=== PATIENT | male | born 1985 | race African-American/Black ===

== ENCOUNTER 2019-07-22 20:22 | Emergency (ER) | payer MEDICAID, SELFPAY ==
[2019-07-22 19:58] VITALS: BP 113/47; PULSE 88; RESP 16; TEMP 37.2; O2SAT 97
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
--- NOTE | 2019-07-22 22:30 | NUR.NOTE ---
Mental health in to evjohn pt.
--- NOTE | 2019-07-22 23:12 | PDOC.MHCN_ITS ---
Date of service: 07/22/19 Time of Service: 23:12 Mental Health Crisis Note Presenting Issue How did you arrive at the ED and why did you come: Aurelia called 911 tonight because he was feeling overwhelmed and needed support. Precipitating Factors Aurelia denied SI and HI. He has no hx of either. He recently lost a very close friend of his due to medical condition she had and is struggling with coping with his grief. In addition he is 3 days new to the area and trying to figure out his needs to get settled in his home and switch all of his services over to [facility] from [facility] in [place]. Disposition BEHAVIOR: Aurelia is cooperative and very energetic. He speaks with a loud voice but I believe this is normal for him. He is engaged in the conversation and is seeking support and someone to listen. EYE CONTACT: Aurelia's eye contact is normal outside of what appears to be lazy eyes. MOOD: Aurelia appears sad at times and very overwhelmed with what he still has to do to get completely settled in his home. AFFECT: Aurelia's affect appears normal. APPETITE: Aurelia reported his appetite is improving. SLEEP(trouble falling/staying asleep: Aurelia reported that his sleep improved last night. Plan Discussed Aurelia utilizing his DBT skills to deal with stressful situations. I will make a referral to case management through [facility] and we will begin the process of getting Aurelia set up with the [facility] program. Provisional Diagnosis adjustment d.o. unspecified Signature Clinician's Name/Title: Zandra Brock MS Emergency Services Clinician
[2019-07-22 23:23] VITALS: BP 109/77; PULSE 70; RESP 16; O2SAT 99
--- NOTE | 2019-07-22 23:24 | NUR.NOTE ---
Cleared for DC home. Discharge instructions reviewed with verbal understanding. aware to f/u with [facility] as instructed. Ambulated to exit with steady gait.
== END 2019-07-22 23:25 | disposition home or self-care (01) ==
PROVIDERS: Emergency Provider Emergency Medicine
DX: F43.22 Adjustment disorder with anxiety (principal)
CPT/HCPCS: 99283

== ENCOUNTER 2019-08-19 05:07 | Emergency (ER) | payer MEDICAID, SELFPAY ==
[2019-08-19 05:08] VITALS: BP 119/105; PULSE 62; RESP 18; TEMP 36.7; O2SAT 99
[2019-08-19] MEDS: Amoxicillin 875/Clav. 125 TAB PO (05:20)
[2019-08-19] MEDS: Bupivacaine 0.5% Pres-Free 30 ML VIAL IJ (05:20)
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
[2019-08-19] MEDS: Acetaminophen 500 MG TAB 1000 MG PO (05:39)
[2019-08-19] MEDS: Ibuprofen 800 MG TAB PO (05:40)
== END 2019-08-19 05:40 | disposition home or self-care (01) ==
LOC: ER 06:00
PROVIDERS: Emergency Provider Student in an Organized Health Care Education/Training Program
DX: R68.84 Jaw pain (principal); K08.89 Other specified disorders of teeth and supporting structures
CPT/HCPCS: 64450

== ENCOUNTER 2019-08-26 16:23 | Emergency (ER) | payer MEDICAID, SELFPAY ==
[2019-08-26 16:28] VITALS: BP 127/77; PULSE 80; RESP 16; TEMP 36.3; O2SAT 98
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
[2019-08-26] MEDS: Amoxicillin 875/Clav. 125 TAB PO (17:42)
[2019-08-26] MEDS: Ibuprofen 600 MG TAB PO (17:43)
== END 2019-08-26 17:50 | disposition home or self-care (01) ==
PROVIDERS: Emergency Provider Registered Nurse Emergency
DX: R45.1 Restlessness and agitation (principal); R41.9 Unspecified symptoms and signs involving cognitive functions and awareness; K04.7 Periapical abscess without sinus
CPT/HCPCS: 99285; 99283

== ENCOUNTER 2020-02-04 19:30 | Emergency (ER) | payer MEDICAID, SELFPAY ==
[2020-02-04 19:38] VITALS: BP 140/84; PULSE 94; RESP 16; TEMP 36.4; O2SAT 97
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
[2020-02-04] MEDS: Bupivacaine 0.5% Pres-Free 30 ML VIAL (20:10)
== END 2020-02-04 20:15 | disposition home or self-care (01) ==
PROVIDERS: Emergency Provider Student in an Organized Health Care Education/Training Program; PCP Physician Assistant
DX: R68.84 Jaw pain (principal); K08.89 Other specified disorders of teeth and supporting structures; K03.81 Cracked tooth; L30.9 Dermatitis, unspecified
CPT/HCPCS: 64450; 99283; 99281

== ENCOUNTER 2020-02-13 09:40 | Outpatient (REF) | payer MEDICAID, SELFPAY ==
[2020-02-16 14:27] LABS: Chlamydia Result Negative (Negative); GC Result Negative (Negative)
== END 2020-02-13 10:00 ==
LOC: NCHCN 09:40
PROVIDERS: PCP Physician Assistant; Visit Provider Physician Assistant
DX: Z00.00 Encounter for general adult medical examination without abnormal findings (principal)
CPT/HCPCS: 87491; 87591

== ENCOUNTER 2020-02-13 10:17 | Outpatient (REF) | payer MEDICAID, SELFPAY ==
[2020-02-13 19:16] LABS: ALT 23 U/L (16-63); AST 17 U/L (15-37); Alkaline Phosphatase 71 U/L (46-116); Anion Gap 5.9 mmol/L (3-11); BUN 12 mg/dL (7-18); Bilirubin, Total 0.4 mg/dL (0.2-1.0); CO2 30.1 mmol/L (21.0-32.0); Calcium 9.3 mg/dL (8.5-10.1); Calculated LDL 126 mg/dL (<100); Chloride 104 mmol/L (98-107); Cholesterol 212 mg/dL (<200); Glucose 100 mg/dL (74-106); HDL Cholesterol 65 mg/dL (40-60); Potassium 4.2 mmol/L (3.5-5.1); Sodium 140 mmol/L (136-145); Total Protein 7.4 g/dL (6.4-8.2); Triglyceride 105 mg/dL (<150)
[2020-02-15 10:56] LABS: HIV-1/2 Ag & Ab Screen Negative (Negative)
[2020-02-15 11:21] LABS: Hepatitis C Ab w Rflx HCV PCR Negative (Negative)
[2020-02-16 11:12] LABS: HSV Type 1 Ab, IgG Positive (Negative); HSV Type 2 Ab, IgG Positive (Negative)
== END 2020-02-13 10:37 ==
LOC: NCHCN 10:17
PROVIDERS: PCP Physician Assistant; Visit Provider Physician Assistant
DX: Z13.220 Encounter for screening for lipoid disorders (principal); Z13.228 Encounter for screening for other metabolic disorders; Z11.4 Encounter for screening for human immunodeficiency virus [HIV]; Z11.59 Encounter for screening for other viral diseases
CPT/HCPCS: 80053; 80061; 86803; 87389; 86695; 86696

== ENCOUNTER 2020-06-13 13:42 | Emergency (ER) | payer MEDICAID, SELFPAY ==
[2020-06-13 13:43] VITALS: BP 125/87; PULSE 71; RESP 18; TEMP 36.8; O2SAT 100
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
[2020-06-13 15:27] VITALS: BP 129/87; PULSE 61; O2SAT 100
== END 2020-06-13 15:24 | disposition home or self-care (01) ==
LOC: ER 14:25
PROVIDERS: Emergency Provider Registered Nurse Emergency; PCP Physician Assistant
DX: F43.8 Other reactions to severe stress (principal); R45.4 Irritability and anger
CPT/HCPCS: 99283

== ENCOUNTER 2020-08-08 12:03 | Emergency (ER) | payer MEDICAID, SELFPAY ==
[2020-08-08 12:03] VITALS: PULSE 66; RESP 18; TEMP 36.6; O2SAT 98
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
== END 2020-08-08 14:30 | disposition home or self-care (01) ==
PROVIDERS: Emergency Provider Physician Assistant; PCP Physician Assistant
DX: R45.1 Restlessness and agitation (principal); Z59.9 Problem related to housing and economic circumstances, unspecified
CPT/HCPCS: 99283

== ENCOUNTER 2020-08-21 06:07 | Emergency (ER) | payer MEDICAID, SELFPAY ==
[2020-08-21 06:11] VITALS: BP 108/47; PULSE 90; RESP 16; TEMP 36.5; O2SAT 98
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
--- NOTE | 2020-08-21 06:18 | NUR.NOTE ---
Pt brought in by [facility] after disagreement with landlord. [facility] landlord threatened to evict him. [facility] brought him in for mental health eval. Pt denies SI, HI. Has community resources and counselor. Evaluated by MD Rodríguez. Discharged by MD Rodríguez.
== END 2020-08-21 06:18 | disposition home or self-care (01) ==
LOC: ER 06:25
PROVIDERS: Emergency Provider Student in an Organized Health Care Education/Training Program; PCP Physician Assistant
DX: R45.1 Restlessness and agitation (principal)
CPT/HCPCS: 99285; 99283

== ENCOUNTER 2020-12-23 09:15 | Emergency (ER) | payer MEDICAID, SELFPAY ==
[2020-12-23 09:26] VITALS: BP 155/74; PULSE 71; RESP 15; TEMP 36.5; O2SAT 99
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
--- NOTE | 2020-12-23 10:29 | DI.RAD_ITS ---
Exam(s) XR PORTABLE CHEST AP EXAM: XR PORTABLE CHEST AP CLINICAL HISTORY: cough TECHNIQUE: 2D digital imaging was performed. COMPARISON: No exams were available for comparison FINDINGS: MEDIASTINUM: Normal. HEART: Normal. PULMONARY VASCULATURE: Normal. LUNGS: Clear. PLEURAL SPACE: No pleural effusion or pneumothorax. BONE:Within normal limits for the patient's age. OTHER FINDINGS:Normal. IMPRESSION: No acute pulmonary findings. DATA REPOSITORY: RADIATION DOSE DELIVERED:
[2020-12-24 16:02] LABS: COVID-19 RT-PCR UVMMC Result Negative (Negative)
== END 2020-12-23 11:00 | disposition home or self-care (01) ==
PROVIDERS: Emergency Provider Physician Assistant; PCP Physician Assistant
DX: R05 Cough (principal); Z20.822 Contact with and (suspected) exposure to COVID-19
CPT/HCPCS: 99283; U0003; 71045